=== PATIENT | male | born 1960 | race Caucasian/White ===

== ENCOUNTER 2019-11-16 00:45 | Outpatient (CLI) | payer BC, SELFPAY ==
[2019-11-16 18:19] LABS: SARS-CoV-2 RNA PCR Negative
== END 2019-11-16 00:46 | disposition home or self-care (01) ==
LOC: ANHCOVIDDT 00:45
PROVIDERS: PCP Internal Medicine; Visit Provider Internal Medicine Gastroenterology
DX: Z01.812 Encounter for preprocedural laboratory examination (principal); Z20.828 Contact with and (suspected) exposure to other viral communicable diseases
CPT/HCPCS: 87635; C9803; U0003

== ENCOUNTER 2019-11-18 01:38 | Day surgery (SDC) | payer BC, SELFPAY ==
[2019-11-11 13:18] VITALS: BMI 30.9
[2019-11-18 07:50] VITALS: BP 127/83; PULSE 71; RESP 16; TEMP 36.8; O2SAT 100
[2019-11-18] MEDS: LACTATED RINGERS 1,000 ML 150 ML IV CONT (08:22)
--- NOTE | 2019-11-18 08:32 | PM.HPGS ---
History of Present Illness History of Present Illness Consent: Risks, benefits, and alternatives have been discussed and questions answered. Patient agrees to proceed with procedure. Chief complaint: Neoplasm Screening Narrative: Jeison Damon is a 59 year old W male referred for colonoscopy for evaluation of change in bowel pattern associated with few episodes of hematochezia. Patient did have radiation seeds placed for prostate cancer 3 years ago. Patient did have a colonoscopy 7 years ago which was normal. Patient did have sigmoid volvulus which was resected since this time. [facility] Social History Social History Smoking status: Never smoker Second hand tobacco smoke exposure: No Alcohol intake: current Meds Home Medications and Allergies Home Medications Medication Instructions Recorded Confirmed Type telmisartan 20 mg tablet 20 mg PO DAILY 05/13/19 11/18/19 History eszopiclone 3 mg PO HS PRN 11/11/19 11/18/19 History lorazepam 1 mg PO DAILY PRN 11/11/19 11/18/19 History rosuvastatin 5 mg PO EVERY OTHER DAY 11/11/19 11/18/19 History Allergies Allergy/AdvReac Type Severity Reaction Status Date / Time No Known Allergies Allergy Verified 11/18/19 08:07 Vital Signs Vital Signs - 24 hr 11/18/19 07:50 Temperature 36.8 C Pulse Rate 71 Respiratory Rate 16 Blood Pressure 127/83 Pulse Oximetry 100 Exam Const: Orientation/consciousness: patient oriented x3 Resp: Auscultation: clear to auscultation bilaterally Cardio: Rate: regular rate Rhythm: regular rhythm Heart sounds: no murmurs GI: GI Palp: Yes Soft to palpation, No Tenderness to palpation present (GI), Yes No hepatosplenomegaly present and No Palpable mass present Auscultation: normal bowel sounds Neuro: General: patient oriented x3 and no focal motor deficits Extrem: General: no pedal edema Assessment and Plan Additional Plan Colonoscopy for evaluation of hematochezia
--- NOTE | 2019-11-18 08:33 | P.PNAN_ITS ---
Anes - Initial Pre Proc Eval Procedure: Operation Date: 11/18/19 09:00 Proposed Procedures p Screening Colonoscopy - Chuck Hill MD Date/Time: 11/18/19 08:33 Surgeon: Chuck Hill MD Pre Op Diagnosis: Neoplasm Screening Patient Data Age: 59 Gender: M Height: 5 ft 10 in Weight: 95.5 kg Last Vital Signs Temp 98.2 F 11/18/19 07:50 Pulse 71 11/18/19 07:50 Resp 16 11/18/19 07:50 BP 127/83 11/18/19 07:50 Pulse Ox 100 11/18/19 07:50 Allergies Allergy/AdvReac Type Severity Reaction Status Date / Time No Known Allergies Allergy Verified 11/18/19 08:07 Home Medications Medication Instructions Recorded Confirmed Type telmisartan 20 mg tablet 20 mg PO DAILY 05/13/19 11/18/19 History eszopiclone 3 mg PO HS PRN 11/11/19 11/18/19 History lorazepam 1 mg PO DAILY PRN 11/11/19 11/18/19 History rosuvastatin 5 mg PO EVERY OTHER DAY 11/11/19 11/18/19 History Patient hx anesthesia problems: none Family hx anesthesia problems: none [facility] Past Medical History Medical History (Updated 11/18/19 @ 08:33 by Vitaly Bartlett MD) ADHD (attention deficit hyperactivity disorder) GERD (gastroesophageal reflux disease) H/O gastroesophageal reflux (GERD) H/O prostate cancer Hyperlipidemia Hypertension Social History Social History Smoking status: Never smoker Second hand tobacco smoke exposure: No Alcohol intake: current Anes - Eval Final PreProcedure Day of Procedure 11/18/19 08:33 Patient weight: overweight Heart: regular rate and rhythm Lungs: clear to auscultation Airway: Mallampati scale class II Neurological: alert and oriented Last oral intake: >/= 8 hours ASA classification: III Emergent: no Anesthetic plan: proceed Anesthesia type and monitoring: general Informed Consent: The patient's anesthetic plan and its attendant risks and benefits were discussed with the patient/family/POA. Questions were solicited and answers provided to the satisfaction of the patient/family/POA.
[2019-11-18 09:47] VITALS: BP 88/59; PULSE 70; RESP 15; O2SAT 92
[2019-11-18 09:57] VITALS: BP 109/69; PULSE 64; RESP 18; O2SAT 99
[2019-11-18 10:07] VITALS: BP 115/82; PULSE 65; RESP 16; O2SAT 99
== END 2019-11-18 10:38 | disposition home or self-care (01) ==
PROVIDERS: PCP Internal Medicine; Visit Provider Internal Medicine Gastroenterology
PROC: 0DJD8ZZ Inspection of Lower Intestinal Tract, Via Natural or Artificial Opening Endoscopic (ICD-10-PCS; CPT 45378; principal; 2019-11-18 09:00)
DX: Z12.11 Encounter for screening for malignant neoplasm of colon (principal); D12.2 Benign neoplasm of ascending colon; K64.4 Residual hemorrhoidal skin tags; K51.20 Ulcerative (chronic) proctitis without complications; Z85.46 Personal history of malignant neoplasm of prostate
CPT/HCPCS: 45380; 88305; J2704; J7120

== ENCOUNTER 2020-02-20 07:32 | Outpatient (CLI) | payer BC, SELFPAY ==
--- NOTE | 2020-04-04 11:22 | WPDHOMESLEEP ---
Sleep Study - Home Unattended Date of Study: 02/20/20 Ordering Provider: Jairo Perez MD Interpreting Physician: Monique Zhang MD Home Sleep Study Type: Apnea Link Air Height: 1.78 m Weight: 96.162 kg Body Mass Index: 30.4 Neck Circumference (inches): 16.75 Bartelso: 7 Reason for Sleep Study hypersomnia Sleep History Jeison Damon is a 59-year-old male who has loud snoring and witnessed apneas. He sleeps alone so he is not sure how often these occur. He sometimes sleeps on the couch or in a recliner. He has used Ambien CR which helped with sleep onset a little and Lunesta which did not help at all with the quality of sleep. His snoring is frequently loud enough that it bothers others. He occasionally awakens at night with heartburn, belching or coughing. He occasionally awakens from sleep feeling short of breath. He occasionally has trouble sleep with a cold, occasionally wakes up gasping for breath during the night. He rarely has breathing problems at night observed by others. He rarely sweats excessively at night. He occasionally notices his heart pounding or beating irregularly at night. He does not fall asleep during the day, involuntarily, while driving or during physical effort. He does not have loss of muscle tone with strong emotion. He rarely has daytime difficulties due to excessive sleepiness. He frequently has vivid dreamlike scenes upon awakening or falling asleep. He rarely is afraid to go to sleep. He frequently has nightmares. He frequently remembers his dreams. He frequently has racing thoughts. He occasionally feels sad depressed and anxious. He rarely has muscular tension. He does not notice parts of his body jerking. He does not know if he kicks at night. He denies crawling and aching feelings in his legs at night. He denies any leg pain at night. He does not have morning jaw pain and does not grind his teeth during sleep. He is not bothered by pain during the day and is not awakened by pain at night. He rarely wakes up feeling stiff in the morning with sore or achy muscles, rarely wakes up with pain in the neck and spine. He has palpitations, fatigue, panic, sexual issues, insomnia if he does not take medications to initiate sleep, and he has concentration difficulties. He takes antacids regularly. He feels unable to relax. He takes Xanax at nighttime. He has episodes of waking at night from a dream with difficulty breathing and his heart racing. Normal bedtime is between 11:00 p.m. and 12 midnight taking 30 minutes to an hour to fall asleep. He typically wakes up 2-3 times at night, often to use the bathroom. Sometimes he just turns over and tries to get back to sleep. At times, he takes a half of a sedative to return to sleep. He wakes the morning at 6:00 a.m.. The weekend schedule shows that he stays awake an hour longer going to bed between midnight and 1:00 a.m., still waking at 6:00 a.m. He very rarely takes a nap. A short nap is not refreshing. He is drowsy in the morning for 2 hours or longer. He feels better in the morning compared to other times of day. Habits: Never smoked tobacco. Caffeine 3 cups in the morning. Alcohol 2 on average daily. No recreational drugs. [facility] Past Medical History Medical History (Updated 04/04/20 @ 11:33 by Monique Zhang MD) ADHD (attention deficit hyperactivity disorder) Anxiety GERD (gastroesophageal reflux disease) H/O gastroesophageal reflux (GERD) H/O prostate cancer Hyperlipidemia Hypertension Family History Family History Mother Family history of malignant neoplasm of ovary, Onset Age: 68 Patient's mother is Father Patient's father is Social History Social History Smoking status: Never smoker Second hand tobacco smoke exposure: No Alcohol intake: current Medications
[2020-04-04 11:40] VITALS: BMI 30.4
== END 2020-02-20 07:33 | disposition home or self-care (01) ==
LOC: ANHCSM 07:32
PROVIDERS: PCP Internal Medicine; Visit Provider Internal Medicine
DX: G47.10 Hypersomnia, unspecified (principal)
CPT/HCPCS: 95806

== ENCOUNTER 2020-05-31 15:07 | Outpatient (CLI) | payer BC, SELFPAY | END 2020-05-31 15:08 | disposition home or self-care (01) | LOC: ANHCOVIDVC 15:08 | PROVIDERS: PCP Internal Medicine | DX: Z23 Encounter for immunization (principal) | CPT/HCPCS: 0001A; 91300 ==

== ENCOUNTER 2020-06-21 15:00 | Outpatient (CLI) | payer BC, SELFPAY | END 2020-06-21 15:01 | disposition home or self-care (01) | LOC: ANHCOVIDVC 15:00 | PROVIDERS: PCP Internal Medicine | DX: Z23 Encounter for immunization (principal) | CPT/HCPCS: 0002A; 91300 ==

== ENCOUNTER 2021-05-22 00:27 | Day surgery (SDC) | payer BC, SELFPAY ==
[2021-05-20 11:55] VITALS: BMI 31.3
[2021-05-22 12:40] VITALS: BP 133/83; PULSE 87; RESP 20; TEMP 36.8; O2SAT 98; BMI 29.7
[2021-05-22] MEDS: LACTATED RINGERS 1,000 ML 150 ML IV CONT (12:49)
--- NOTE | 2021-05-22 13:01 | WPDANESEPPF ---
Anes - Initial Pre Proc Eval Procedure: Operation Date: 05/22/21 13:45 Proposed Procedures p Screening Colonoscopy - Bob Hoffman MD Date/Time: 05/22/21 13:01 Surgeon: Bob Hoffman MD Pre Op Diagnosis: hx of colon polyps, neoplasm screening Patient Data Age: 60 Gender: M Height: 1.78 m Weight: 94.2 kg Last Vital Signs Temp 98.3 F 05/22/21 12:40 Pulse 87 05/22/21 12:40 Resp 20 05/22/21 12:40 BP 133/83 05/22/21 12:40 Pulse Ox 98 05/22/21 12:40 Allergies Allergy/AdvReac Type Severity Reaction Status Date / Time No Known Allergies Allergy Verified 05/22/21 12:38 Home Medications Medication Instructions Recorded Confirmed Type telmisartan 20 mg tablet 20 mg PO DAILY 05/13/19 05/20/21 History zolpidem 12.5 mg tablet,extended 12.5 mg PO QHS PRN 05/22/20 05/20/21 History release,multiphase icosapent ethyl 1 gram capsule 2 g PO BID #60 cap 04/02/21 05/20/21 Rx B-complex with vitamin C 1 cap PO DAILY 05/20/21 05/20/21 History alprazolam [Xanax] 1.5 mg PO BID 05/20/21 05/20/21 History cholecalciferol (vitamin D3) 125 mcg PO DAILY 05/20/21 05/20/21 History [Vitamin D3] Patient hx anesthesia problems: none Family hx anesthesia problems: none Results Review: All pre-operative results and documents have been reviewed as part of the pre-operative evaluation. [facility] Past Medical History Medical History ADHD (attention deficit hyperactivity disorder) Anxiety GERD (gastroesophageal reflux disease) H/O gastroesophageal reflux (GERD) H/O prostate cancer Hyperlipidemia Hypertension Family History Family History Mother Family history of malignant neoplasm of ovary, Onset Age: 68 Patient's mother is Father Patient's father is Social History Social History Smoking status: Never smoker Second hand tobacco smoke exposure: No Alcohol intake: current Drinks per week: 14 Alcohol use details: GLASSES WINE Substance use: never Substance use type: does not use Living arrangements: with family Spiritual care concerns: No Anes - Eval Final PreProcedure Day of Procedure 05/22/21 13:01 Patient weight: overweight Heart: regular rate and rhythm Lungs: clear to auscultation Airway: Mallampati scale class III Neurological: alert and oriented Last oral intake: >/= 8 hours ASA classification: III Emergent: no Anesthetic plan: proceed Anesthesia type and monitoring: general GIVS and standard monitoring Results Review: All pre-operative results and documents have been reviewed as part of the pre-operative evaluation. Informed Consent: The patient's anesthetic plan and its attendant risks and benefits were discussed with the patient/family/POA. Questions were solicited and answers provided to the satisfaction of the patient/family/POA.
--- NOTE | 2021-05-22 13:02 | PM.HPGS ---
History of Present Illness History of Present Illness Consent: Risks, benefits, and alternatives have been discussed and questions answered. Patient agrees to proceed with procedure. Chief complaint: hx of colon polyps, neoplasm screening Narrative: Jeison Damon is a 60 year old male Referred for colon cancer screening Review of Systems Review of Systems: All systems reviewed & are unremarkable except as noted in HPI and below PMFSH Past Medical History Medical History ADHD (attention deficit hyperactivity disorder) Anxiety GERD (gastroesophageal reflux disease) H/O gastroesophageal reflux (GERD) H/O prostate cancer Hyperlipidemia Hypertension Family History Family History Mother Family history of malignant neoplasm of ovary, Onset Age: 68 Patient's mother is Father Patient's father is Social History Social History Smoking status: Never smoker Second hand tobacco smoke exposure: No Alcohol intake: current Drinks per week: 14 Alcohol use details: GLASSES WINE Substance use: never Substance use type: does not use Living arrangements: with family Spiritual care concerns: No Meds Home Medications and Allergies Home Medications Medication Instructions Recorded Confirmed Type telmisartan 20 mg tablet 20 mg PO DAILY 05/13/19 05/20/21 History zolpidem 12.5 mg tablet,extended 12.5 mg PO QHS PRN 05/22/20 05/20/21 History release,multiphase icosapent ethyl 1 gram capsule 2 g PO BID #60 cap 04/02/21 05/20/21 Rx B-complex with vitamin C 1 cap PO DAILY 05/20/21 05/20/21 History alprazolam [Xanax] 1.5 mg PO BID 05/20/21 05/20/21 History cholecalciferol (vitamin D3) 125 mcg PO DAILY 05/20/21 05/20/21 History [Vitamin D3] Allergies Allergy/AdvReac Type Severity Reaction Status Date / Time No Known Allergies Allergy Verified 05/22/21 12:38 Vital Signs Vital Signs - 24 hr 05/22/21 12:40 Temperature 36.8 C Pulse Rate 87 Respiratory Rate 20 Blood Pressure 133/83 Pulse Oximetry 98 Exam Resp: Auscultation: clear to auscultation bilaterally Cardio: Rate: regular rate Rhythm: regular rhythm GI: GI Palp: Yes Soft to palpation and No Tenderness to palpation present (GI) Assessment and Plan Assessment and plan (1) Colon cancer screening: Code(s): Z12.11 - Encounter for screening for malignant neoplasm of colon Status: Acute Assessment and Plan: Colonoscopy with possible biopsy or polypectomy or cautery or injection of substances.
[2021-05-22 14:14] VITALS: BP 96/67; PULSE 76; RESP 25; O2SAT 94
[2021-05-22 14:24] VITALS: BP 102/70; PULSE 73; RESP 16; O2SAT 97
[2021-05-22 14:34] VITALS: BP 101/69; PULSE 76; RESP 24; O2SAT 97
== END 2021-05-22 15:08 | disposition home or self-care (01) ==
PROVIDERS: PCP Internal Medicine; Visit Provider Internal Medicine Gastroenterology
PROC: 0DJD8ZZ Inspection of Lower Intestinal Tract, Via Natural or Artificial Opening Endoscopic (ICD-10-PCS; CPT 45378; principal; 2021-05-22 13:45)
DX: Z12.11 Encounter for screening for malignant neoplasm of colon (principal); D12.4 Benign neoplasm of descending colon; K57.30 Diverticulosis of large intestine without perforation or abscess without bleeding; I10 Essential (primary) hypertension; E78.5 Hyperlipidemia, unspecified; K21.9 Gastro-esophageal reflux disease without esophagitis; F41.9 Anxiety disorder, unspecified; F90.9 Attention-deficit hyperactivity disorder, unspecified type; Z85.46 Personal history of malignant neoplasm of prostate
CPT/HCPCS: 45385; 88305; J2704; J7120

== ENCOUNTER 2022-04-07 02:45 | Emergency (ER) | payer BC, SELFPAY ==
[2022-04-07] VITALS (11 sets, daily range): BP systolic 100–130; BP diastolic 66–87; PULSE 82–103; RESP 16–22; O2SAT 91–98
--- NOTE | ~2022-04-07 | CT_ITS ---
EXAMINATION: CT brain wo con DATE: 04/07/2022 03:25 INDICATION: Confusion and poor possibility. TECHNIQUE: Computed tomography (CT) of the head was performed without intravenous contrast. Sagittal and coronal reconstructions were performed. The mA was adjusted according to patient size. Iterative reconstruction technique was employed. The dose-length product was 605.33 mGy-cm. COMPARISON: None FINDINGS: No acute intracranial hemorrhage, acute infarction or abnormal extra axial fluid collection. There is minimal scattered white matter hypoattenuation consistent with chronic small vessel ischemic disease . Symmetric prominence of the sulci consistent with mild age-appropriate diffuse cerebral volume loss . Ventricles are normal and symmetric. No mass/mass effect. Changes of bilateral intraocular lens rep lacement. The orbits and mastoid air cells are normal. Mild mucoperiosteal thickening at the bilatera l ethmoid sinuses. IMPRESSION: 1. Normal aging brain. No acute intracranial process. Reviewed, dictated and finalized at location [facility]. [facility] [employer]
--- NOTE | 2022-04-07 02:58 | ED.AMS ---
HPI - Altered Mental Status General Chief Complaint: Alcohol <Vik Beaulieu MD - Last Filed: 04/07/22 06:45> Stated Complaint: Altered, Xanax OD, combative <Vik Beaulieu MD - Last Filed: 04/07/22 06:45> Time Seen by Provider: 04/07/22 02:54 <Vik Beaulieu MD - Last Filed: 04/07/22 06:45> History of Present Illness HPI narrative: 61-year-old male presents to the emergency department for evaluation of altered mental status. EMS was initially called to the house earlier in the evening for evaluation of a male that was difficult to wake up. At that time EMS found the patient was alert and oriented. EMS was called back to the house for a confused male approximately 1 hour later. Patient was transferred to the emergency department. Patient did admit to taking Xanax and patient states he has also been drinking since 4 PM. Patient denies any falls or injuries. Patient states that he was drinking alcohol but he was taking his prescription Xanax as directed. Patient denies taking any extra Xanax. <Vik Beaulieu MD - Last Filed: 04/07/22 06:45> Related Data Home Medications: Home Medications Medication Instructions Recorded Confirmed telmisartan 20 mg tablet (Micardis) 20 mg PO DAILY 05/13/19 12/02/21 zolpidem 12.5 mg tablet,extended 12.5 mg PO QHS PRN Insomnia 05/22/20 12/02/21 release,multiphase B-complex with vitamin C 1 cap PO DAILY 05/20/21 12/02/21 alprazolam 1 mg tablet (Xanax) 1.5 mg PO BID 05/20/21 12/02/21 cholecalciferol (vitamin D3) 125 125 mcg PO DAILY 05/20/21 12/02/21 mcg (5,000 unit) tablet (Vitamin D3) <Vik Beaulieu MD - Last Filed: 04/07/22 06:45> Allergies/Adverse Reactions: Allergies Allergy/AdvReac Type Severity Reaction Status Date / Time No Known Allergies Allergy Verified 12/02/21 13:14 <Vik Beaulieu MD - Last Filed: 04/07/22 06:45> Review of Systems Review of Systems: CONSTITUTIONAL: Denies fever, chills, or sweats. EYES: Denies visual changes, redness, or discharge. ENT: Denies rhinorrhea, congestion, sore throat, or otalgia. CARDIOVASCULAR: Denies chest pain, palpitations, or edema. RESPIRATORY: Denies cough or dyspnea. GASTROINTESTINAL: Denies abdominal pain, nausea, vomiting, or diarrhea. GENITOURINARY: Denies dysuria or hematuria. SKIN: Denies rash or itching. MUSCULOSKELETAL: Denies back pain, joint pain, or myalgia. NEUROLOGIC: See HPI HPI. <Vik Beaulieu MD - Last Filed: 04/07/22 06:45> [facility] Past Medical History Medical History: Medical History (Updated 04/07/22 @ 06:44 by Vik Beaulieu MD) ADHD (attention deficit hyperactivity disorder) Anxiety GERD (gastroesophageal reflux disease) H/O gastroesophageal reflux (GERD) H/O prostate cancer Hyperlipidemia Hypertension Kidney disease Small bowel obstruction <Vik Beaulieu MD - Last Filed: 04/07/22 06:45> Family History Family History: Family History Mother Family history of malignant neoplasm of ovary, Onset Age: 68 Patient's mother is Father Patient's father is <Vik Beaulieu MD - Last Filed: 04/07/22 06:45> Social History Social History: Social History Smoking status: Never smoker Second hand tobacco smoke exposure: No Alcohol intake: current Drinks per week: 14 Alcohol use details: GLASSES WINE Substance use: never Substance use type: does not use Spiritual care concerns: No <Vik Beaulieu MD - Last Filed: 04/07/22 06:45> Exam Narrative: APPEARANCE: Intoxicated HEAD: normocephalic, atraumatic. EYES: PERRLA/EOMI, conjunctivae clear. NOSE: Normal no drainage EARS:TMS clear with good light reflex. THROAT: Pharynx clear, no exudate. NECK: Supple. No adenopathy, no masses. RESPIRATORY: Airway patent, respirations nonlabored. Clear to auscultation shereen
[2022-04-07 03:35] LABS: Basophils Percent Auto 0.6 % (0.2-1.2); Eosinophils Absolute Auto 0.2 K/mm3 (0-0.3); Eosinophils Percent Auto 3.8 % (0-4.4); Hematocrit 43.5 % (42.0-52.0); Hemoglobin 14.5 g/dL (14.0-18.0); Immature Granulocyte Absolute 0.03 K/mm3 (0.00-0.031); Immature Granulocyte Percent A 0.6 % (0-0.5); Lymphocytes Absolute Auto 1.14 K/mm3 (0.9-3.2); Lymphocytes Percent Auto 21.7 % (18.3-44.2); Mean Corpuscular HGB Conc 33.3 g/dl (32-36); Mean Corpuscular Hemoglobin 32.3 pg (26-34); Mean Corpuscular Volume 96.9 fl (80-100); Mean Platelet Volume 8.8 fl (7.4-10.4); Monocytes Absolute Auto 0.6 K/mm3 (0.1-0.6); Neutrophils Absolute Auto 3.3 K/mm3 (1.3-6.7); Neutrophils Percent Auto 62.3 % (45.5-73.1); Platelet Count Result 201 k/mm3 (150-375); Red Blood Count 4.49 M/mm3 (4.6-6.20); Red Cell Distribution Width 12.3 % (11.5-14.5); White Blood Count 5.3 K/mm3 (4.5-10.0)
[2022-04-07 03:45] LABS: Ethanol 152 mg/dL (<10)
[2022-04-07 03:46] LABS: Alanine Aminotransferase 25 U/L (6-50); Albumin Level 4.1 g/dL (3.5-5.1); Alkaline Phosphatase 60 U/L (38-126); Anion Gap 8 mmol/L (8-16); Aspartate Amino Transferase 34 U/L (17-59); Bilirubin,Total 0.3 mg/dL (0.2-1.3); Blood Urea Nitrogen 15 mg/dL (9-20); Carbon Dioxide 24 mmol/L (22-30); Chloride 104 mmol/L (98-107); Estimated Glomerular Filt Rate > 60; Glucose 93 mg/dL (65-110); Potassium 4.2 mmol/L (3.4-5.0); Sodium 136 mmol/L (137-145)
[2022-04-07] MEDS: SODIUM CHLORIDE 0.9% IV 1,000 ML 999 ML IV CONT (05:04)
[2022-04-07 08:11] LABS: Appearance Urine Clear (Clear); Bilirubin Urine Negative (Negative); Blood Urine Negative (Negative); Color Urine Yellow (Yellow); Glucose Urine UA Negative (Negative); Ketones Urine Negative (Negative); Leukocyte Esterase Ur Negative LEU/UL (Negative); Nitrate Urine Negative (Negative); Protein Urine Negative (Negative); Urobilinogen Urine 0.2 mg/dL (<2.0); pH Urine 5.5 (5.0-9.0)
[2022-04-07 08:23] LABS: Add Urine Microscopic? NO
[2022-04-07 08:30] LABS: Amphetamine Screen Urine Negative (Negative); Barbiturate Screen Urine Negative (Negative); Benzodiazepines Screen Urine Positive (Negative); Cannabinoid Screen Urine Negative (Negative); Cocaine Screen Urine Negative (Negative); Methadone Screen Urine Negative (Negative); Opiate Screen Urine Negative (Negative); Phencyclidine Screen Urine Negative (Negative)
== END 2022-04-07 10:45 | disposition home or self-care (01) ==
PROVIDERS: Emergency Medicine; Emergency Provider Emergency Medicine; PCP Internal Medicine
DX: T51.0X1A Toxic effect of ethanol, accidental (unintentional), initial encounter (principal); T42.4X1A Poisoning by benzodiazepines, accidental (unintentional), initial encounter; F10.929 Alcohol use, unspecified with intoxication, unspecified; E78.5 Hyperlipidemia, unspecified; I10 Essential (primary) hypertension; N28.9 Disorder of kidney and ureter, unspecified; K21.9 Gastro-esophageal reflux disease without esophagitis; F90.9 Attention-deficit hyperactivity disorder, unspecified type; F41.9 Anxiety disorder, unspecified; Z85.46 Personal history of malignant neoplasm of prostate; Y90.6 Blood alcohol level of 120-199 mg/100 ml
CPT/HCPCS: 36415; 70450; 80053; 80307; 81003; 85025; 96360; 99284; J7030

== ENCOUNTER 2022-08-12 09:18 | Outpatient (CLI) | payer BC, SELFPAY ==
--- NOTE | 2022-08-14 15:26 | WPDHOLTEREM ---
Holter/Event Monitor Holter/Event Monitor Date of procedure: 08/12/22 Holter/Event Procedure: 48 Hr Holter Monitor Indications: Cardiac arrhythmia Conclusion: 1. 48 hour holter monitor on 08/12/22. 2. Predominant rhythm is sinus rhythm. HR range 48-132 bpm; average HR 77 bpm. 3. There are 7,812 premature supraventricular complexes, 89 supraventricular couplets, 1 supraventricular triplet, 15 supraventricular bigeminy, 346 supraventricular trigeminy. There is 1 episode of atrial tachycardia at 164 bpm lasting 4 beats at 15:11. 4. There are 75 premature ventricular complexes. No ventricular tachycardia. 5. No sinoatrial or atrioventricular blocks. No significant pauses greater than 2 seconds. 6. No symptoms available for correlation.
== END 2022-08-12 09:19 | disposition home or self-care (01) ==
PROVIDERS: PCP Internal Medicine; Visit Provider Physician Assistant
DX: I49.9 Cardiac arrhythmia, unspecified (principal)
CPT/HCPCS: 93225; 93226